=== PATIENT | male | born 1970 | race Caucasian/White ===

== ENCOUNTER 2017-09-30 10:09 | Observation (INO) | payer OTHER ==
[2017-09-30] VITALS (8 sets, daily range): BP systolic 111–167; BP diastolic 61–101; PULSE 46–74; RESP 16–20; TEMP 97.1–98.2; O2SAT 96–100
[~2017-09-30] VITALS: Ht 175.3 cm; Wt 84.6 kg
[2017-09-30] MEDS ORDERED: ZANA4CAP PO (12:32)
[2017-09-30] MEDS ORDERED: IMIT25TA PO (12:32)
[2017-09-30] MEDS ORDERED: VARE1 PO (12:32)
[2017-09-30] MEDS ORDERED: ALPR0.25 PO (12:32)
[2017-09-30] MEDS ORDERED: MORP1TAB25 PO (12:32)
[2017-09-30] MEDS ORDERED: LINA145C PO (12:32)
[2017-09-30] MEDS ORDERED: ZOLP10TA3 PO (12:32)
[2017-09-30] MEDS ORDERED: TRAZ100T10 PO (12:32)
[2017-09-30] MEDS ORDERED: PROT40TA PO (12:32)
[2017-09-30] MEDS ORDERED: DILA4TAB10 PO (12:32)
--- NOTE | 2017-09-30 12:41 | PD ---
HPI Chief Complaint: Chest Pain Time Seen by Provider: 12:38 Travel History International Travel<30 days: No Contact w/Intl Traveler<30days: No Traveled to known affect area: No History of Present Illness HPI 47-year-old male patient with history of hypertension, presents to the ER today because of left-sided chest pains that started on its own and has been waxing and waning intermittently for the last week and a half. He states that it even feels like it is going down his left shoulder. He states that it gets worse with movements and deep breaths. He denies any fevers, coughing, shortness of breath, or any other symptoms. He currently rates it a 7 out of 10. Modifying Factors: Worse with movement and deep breath Associated Signs & Symptoms: Left-sided chest pain Risk Factors: None PFSH Past Medical History Diminished Hearing: No Gastrointestinal Disorders: Yes GERD: Yes Musculoskeletal: Yes Influenza Vaccination: No Past Surgical History Other Surgery: Yes (MULTIPLE DUE TO INJURIES) Social History Alcohol Use: Yes Tobacco Use: No Allergies-Medications (Allergen,Severity, Reaction): Coded Allergies: vancomycin (Verified Allergy, Severe, "VANNESSA SYNDROME" AND ITCHY, ) Reported Meds & Prescriptions Reported Meds & Active Scripts Active Reported Zanaflex (Tizanidine HCl) 4 Mg Cap 4 Mg PO TID Linzess (Linaclotide) 145 Mcg Cap 145 Mcg PO HS Alprazolam 0.25 Mg Tab 0.25 Mg PO Q8H PRN Morphine ER (Morphine Sulfate) 30 Mg Tab 30 Mg PO BID Dilaudid (Hydromorphone HCl) 4 Mg Tab 4 Mg PO Q8H PRN Chantix (Varenicline) 1 Mg Tab 1 Mg PO BIDPC Zolpidem (Zolpidem Tartrate) 10 Mg Tab 10 Mg PO HS PRN Trazodone (Trazodone HCl) 100 Mg Tablet 100 Mg PO HS Protonix (Pantoprazole Sodium) 40 Mg Tab 40 Mg PO BID Imitrex (Sumatriptan Succinate) 25 Mg Tab 25 Mg PO ONCE PRN If a satisfactory response has not been obtained at 2 hours, a second dose may be administered Review of Systems Except as stated in HPI: all other systems reviewed are Neg Physical Exam Narrative GENERAL: Well-developed middle age male patient currently in mild distress. Awake and oriented 3. SKIN: Focused skin assessment warm/dry. HEAD: Atraumatic. Normocephalic. EYES: Pupils equal and round. No scleral icterus. No injection or drainage. ENT: No nasal bleeding or discharge. Mucous membranes pink and moist. NECK: Trachea midline. No JVD. CARDIOVASCULAR: Regular rate and rhythm. No murmur appreciated. Pulses are present and equal bilaterally. CHEST: Nontender throughout without deformity or crepitance. No retractions or use of accessory muscles. RESPIRATORY: No accessory muscle use. Clear to auscultation. Breath sounds equal bilaterally. GASTROINTESTINAL: Abdomen soft, non-tender, nondistended. Hepatic and splenic margins not palpable. MUSCULOSKELETAL: No obvious deformities. No clubbing. No cyanosis. No edema. NEUROLOGICAL: Awake and alert. No obvious cranial nerve deficits. Motor grossly within normal limits. Normal speech. PSYCHIATRIC: Appropriate mood and affect; insight and judgment normal. Data Data Last Documented VS Vital Signs Date Time Temp Pulse Resp B/P (MAP) Pulse Ox O2 Delivery O2 Flow Rate FiO2 09/30/17 14:05 68 18 153/100 (117) 99 Room Air 09/30/17 10:15 98.1 Orders Orders Electrocardiogram (09/30/17 12:38) Ckmb (Isoenzyme) Profile (09/30/17 12:38) Complete Blood Count With Diff (09/30/17 12:38) Comprehensive Metabolic Panel (09/30/17 12:38) D-Dimer (09/30/17 12:38) Magnesium (Mg) (09/30/17 12:38) Prothrombin Time / Inr (Pt) (09/30/17 12:38) Act Partial Throm Time (Ptt) (09/30/17 12:38) Troponin I (09/30/17 12:38) Lipase (09/30/17 12:38) Chest, Single Ap (09/30/17 12:38) Ecg Monitoring (09/30/17 12:38) Bilateral Bp Monitoring (09/30/17 12:38) Iv Access Insert/Monitor (09/30/17 12:38) Oximetry (09/30/17 12:38) Oxygen Administration (09/30/17 12:38) Aspirin (Aspirin) (09/30/17 12:45) Nitroglycerin 2% Oint (Nitroglycerin 2% (09/30/17 12:45) Sodium Chloride 0.9% Flush (Ns Flush) (09/30/17 12:45) CKMB (09/30/17 12:45) CKMB% (09/30/17 12:45) Admit Order (Ed Use Only) (09/30/17 14:16) Labs Laboratory Tests Test 09/30/17 12:45 White Blood Count 7.3 TH/MM3 Red Blood Count 4.71 MIL/MM3 Hemoglobin 14.0 GM/DL Hematocrit 42.2 % Mean Corpuscular Volume 89.7 FL Mean Corpuscular Hemoglobin 29.8 PG Mean Corpuscular Hemoglobin Concent 33.2 % Red Cell Distribution Width 12.7 % Platelet Count 227 TH/MM3 Mean Platelet Volume 8.5 FL Neutrophils (%) (Auto) 69.4 % Lymphocytes (%) (Auto) 19.1 % Monocytes (%) (Auto) 7.9 % Eosinophils (%) (Auto) 2.6 % Basophils (%) (Auto) 1.0 % Neutrophils # (Auto) 4.9 TH/MM3 Lymphocytes # (Auto) 1.4 TH/MM3 Monocytes # (Auto) 0.6 TH/MM3 Eosinophils # (Auto) 0.2 TH/MM3 Basophils # (Auto) 0.1 TH/MM3 CBC Comment DIFF FINAL Differential Comment Prothrombin Time 10.0 SEC Prothromb Time International Ratio 1.0 RATIO Activated Partial Thromboplast Time 26.3 SEC D-Dimer Quantitative (PE/DVT) LESS THAN 0.19 MG/L FEU Blood Urea Nitrogen 14 MG/DL Creatinine 0.96 MG/DL Random Glucose 97 MG/DL Total Protein 6.9 GM/DL Albumin 3.8 GM/DL Calcium Level 8.4 MG/DL Magnesium Level 1.9 MG/DL Alkaline Phosphatase 71 U/L Aspartate Amino Transf (AST/SGOT) 21 U/L Alanine Aminotransferase (ALT/SGPT) 22 U/L Total Bilirubin 0.6 MG/DL Sodium Level 136 MEQ/L Potassium Level 4.0 MEQ/L Chloride Level 102 MEQ/L Carbon Dioxide Level 25.6 MEQ/L Anion Gap 8 MEQ/L Estimat Glomerular Filtration Rate 85 ML/MIN Total Creatine Kinase 167 U/L Creatine Kinase MB 1.1 NG/ML Troponin I LESS THAN 0.02 NG/ML Lipase 72 U/L MDM Medical Decision Making Medical Screen Exam Complete: Yes Emergency Medical Condition: Yes Medical Record Reviewed: Yes Interpretation(s) EKG shows NSR, no ST elevation or depression, and no arrhythmias. No significant T-wave inversions. Laboratory Tests Test 09/30/17 12:45 Calcium Level 8.4 MG/DL (8.5-10.1) Estimat Glomerular Filtration Rate 85 ML/MIN (>89) Troponin I LESS THAN 0.02 NG/ML Lipase 72 U/L (73-393) Last 24 hours Impressions Chest X-Ray 09/30/17 1238 Signed Impressions: Service Date/Time: Saturday, September 30, 2017 13:27 - CONCLUSION: No acute disease. Ray Villalobos MD Differential Diagnosis Chest pains: Pleurisy versus pneumonia versus ACS versus PE Narrative Course D-dimer is negative. Chest x-ray did not show any signs of acute pulmonary processes. Cardiac enzymes negative. EKG did not show any signs of acute changes. However, considering the patient's history of hypertension, age, my plan would be to admit him for further evaluation and chest pain center. Case is discussed with Dr. Mcginnis for admission. He has been given aspirin and nitroglycerin in the ER. Diagnosis Primary Impression: Chest pain Admitting Information Admitting Physician Requests: Admit Baltazar Davidson MD Sep 30, 2017 12:41
[2017-09-30] MEDS ORDERED: SODIUM CHLORIDE 0.9% FLUSH 10 ML FLUSH IVF PRN (12:45)
[2017-09-30] MEDS ORDERED: ASPIRIN 325 MG TAB PO ONE (12:45)
[2017-09-30] MEDS ORDERED: NITROGLYCERIN 2% OINT 1 GM PACKET TOP ONE (12:45)
[2017-09-30 12:55] LABS: AUTOMATED NEUTROPHIL # 4.9 TH/MM3 (1.8-7.7); BASOPHIL # 0.1 TH/MM3 (0-0.2); EOSINOPHIL # 0.2 TH/MM3 (0-0.4); EOSINOPHIL % 2.6 % (0.0-4.0); HEMATOCRIT 42.2 % (39.0-51.0); HEMO FLAGS DIFF FINAL; LYMPH % 19.1 % (9.0-44.0); LYMPHOCYTE # 1.4 TH/MM3 (1.0-4.8); MEAN CELL VOLUME 89.7 FL (80.0-100.0); MEAN CORPUSCULAR HEMOGLOBIN 29.8 PG (27.0-34.0); MEAN CORPUSCULAR HGB CONC 33.2 % (32.0-36.0); MONO % 7.9 % (0.0-8.0); NEUT % 69.4 % (16.0-70.0); PLATELET COUNT 227 TH/MM3 (150-450); RED BLOOD COUNT 4.71 MIL/MM3 (4.50-5.90); RED CELL DISTRIBUTION WIDTH 12.7 % (11.6-17.2); WHITE BLOOD COUNT 7.3 TH/MM3 (4.0-11.0)
[2017-09-30 13:09] LABS: CHLORIDE 102 MEQ/L (98-107); SODIUM (NA) 136 MEQ/L (136-145)
[2017-09-30 13:15] LABS: ANION GAP 8 MEQ/L (5-15); APTT (PATIENT) 26.3 SEC (24.3-30.1); BICARBONATE 25.6 MEQ/L (21.0-32.0); BLOOD UREA NITROGEN 14 MG/DL (7-18); MAGNESIUM 1.9 MG/DL (1.5-2.5)
[2017-09-30 13:18] LABS: ALT (GPT) 22 U/L (12-78); AST (GOT) 21 U/L (15-37); GLOMERULAR FILTRATION RATE 85 ML/MIN (>89)
[2017-09-30 13:19] LABS: TOTAL BILIRUBIN ADULT 0.6 MG/DL (0.2-1.0)
[2017-09-30 13:21] LABS: ALKALINE PHOSPHATASE 71 U/L (45-117); CREATINE KINASE 167 U/L (39-308)
[2017-09-30 13:33] LABS: CKMB 1.1 NG/ML (0.5-3.6)
--- NOTE | 2017-09-30 13:57 | RADRPT ---
EXAM DATE/TIME: 09/30/2017 13:27 [facility] COMPARISON: No previous studies available for comparison. INDICATIONS : Chest pain MEDICAL HISTORY : Osteoarthritis. Rheumatoid arthritis. SURGICAL HISTORY : Joint replacement surgery ENCOUNTER: Initial ACUITY: 1 week PAIN SCORE: 8/10 LOCATION: Bilateral chest FINDINGS: A single view of the chest demonstrates the lungs to be symmetrically aerated without evidence of mas s, infiltrate or effusion. The cardiomediastinal contours are unremarkable. Osseous structures are intact. CONCLUSION: No acute disease. Ray Villalobos MD on September 30, 2017 at 13:55 Board Certified Radiologist. This report was verified electronically.
--- NOTE | 2017-09-30 16:46 | HHI.HP ---
[facility] Service [facility] Primary Care Physician Non-Staff Admission Diagnosis Chest pain Diagnoses: (1) Chest pain Diagnosis: Principal Chief Complaint: Chest pain Travel History International Travel<30 Days: No Contact w/Intl Traveler <30 Da: No Traveled to Known Affected Are: No History of Present Illness Mr. Blanco is a 47-year-old male patient with a known medical history of GERD and HTN who presented to the ED with complaints of chest pain. Patient states that about a week and a half ago he noticed a sudden chest discomfort while watching television. The pain was located in his left chest and radiated to his midsternal area. He characterizes the pain as a sharp pain, leaving his feeling "bruised" and "sore". The patient states this type of pain has been occurring intermittently over the course of 1.5 weeks. Denies any associated symptoms including nausea, vomiting, diaphoresis or shortness of breath. He does state that increased activity makes the pain worse. Denies any known relieving factors. Denies any recent illness including fever, chills, headache, sore throat, shortness of breath, ab pain, n/v/d or dysuria. Does state that roughly 8 years ago he had similar complaints of chest pain, underwent a nuclear stress test which was reportedly negative. Patient also at that time underwent a cardiac catheterization with unknown report. Patient did not follow with a sports development officer and vaguely remembers that the cath was unremarkable. PCP is Dr. Mcallister. Review of Systems Constitutional: DENIES: Fever, Chills Eyes: DENIES: Blurred vision, Diplopia Respiratory: DENIES: Cough, Sputum production, Shortness of breath Cardiovascular: COMPLAINS OF: Chest pain, Palpitations Gastrointestinal: DENIES: Abdominal pain, Black stools, Bloody stools, Constipation, Diarrhea, Nausea, Vomiting Musculoskeletal: COMPLAINS OF: Back pain Hematologic/lymphatic: DENIES: Bruising Psychiatric: DENIES: Anxiety Except as stated in HPI: all other systems reviewed are Neg Past Family Social History Past Medical History Chronic back pain, multiple injuries GERD Past Surgical History Multiple surgeries due to past injuries. Reported Medications Active Reported Zanaflex (Tizanidine HCl) 4 Mg Cap 4 Mg PO TID Linzess (Linaclotide) 145 Mcg Cap 145 Mcg PO HS Alprazolam 0.25 Mg Tab 0.25 Mg PO Q8H PRN Morphine ER (Morphine Sulfate) 30 Mg Tab 30 Mg PO BID Dilaudid (Hydromorphone HCl) 4 Mg Tab 4 Mg PO Q8H PRN Chantix (Varenicline) 1 Mg Tab 1 Mg PO BIDPC Zolpidem (Zolpidem Tartrate) 10 Mg Tab 10 Mg PO HS PRN Trazodone (Trazodone HCl) 100 Mg Tablet 100 Mg PO HS Protonix (Pantoprazole Sodium) 40 Mg Tab 40 Mg PO BID Imitrex (Sumatriptan Succinate) 25 Mg Tab 25 Mg PO ONCE PRN If a satisfactory response has not been obtained at 2 hours, a second dose may be administered Allergies: Coded Allergies: vancomycin (Verified Allergy, Severe, "VANNESSA SYNDROME" AND ITCHY, ) Active Ordered Medications Current Medications Medications (Trade) Dose Ordered Sig/Andres Route Start Time Stop Time Status Last Admin (NS Flush) 2 ml UNSCH PRN IVF 09/30/17 12:45 (Tylenol) 650 mg Q4H PRN PO 09/30/17 17:00 UNV (Zofran Inj) 4 mg Q6H PRN IVP 09/30/17 17:00 UNV (Aniyah-Colace) 1 tab BID PO 09/30/17 21:00 UNV Family History Paternal medical history significant for cardiovascular disease. Social History Denies any current tobacco use, does admit to quitting two weeks ago. Prior to this he smoked 1 ppd cigarettes x 15 years. Admits to occasional alcohol use. Denies any illicit drug use. Physical Exam Vital Signs Vital Signs Date Time Temp Pulse Resp B/P (MAP) Pulse Ox O2 Delivery O2 Flow Rate FiO2 09/30/17 15:58 80 18 111/61 (78) 98 09/30/17 14:05 68 18 153/100 (117) 99 Room Air 09/30/17 13:39 70 98 Room Air 09/30/17 12:53 Nasal Cannula 09/30/17 12:53 100 09/30/17 12:53 68 20 154/95 (114) 96 167/97 (120) 09/30/17 12:33 70 09/30/17 10:15 98.1 74 16 156/101 (119) 98 Physical Exam GENERAL: This is a well-nourished, well-developed patient, in no apparent distress. SKIN: No rashes, ecchymoses or lesions. Warm and dry. HEAD: Atraumatic. Normocephalic. Pupils equal round and reactive. Extraocular motions intact. No scleral icterus. No injection or drainage. Nose without bleeding. Airway patent. NECK: Trachea midline. No JVD. Supple. CARDIOVASCULAR: Regular rate and rhythm without murmurs, gallops, or rubs. No reproducible chest pain to palpation. RESPIRATORY: Clear to auscultation. Breath sounds equal bilaterally. No wheezes , rales, or rhonchi. GASTROINTESTINAL: Abdomen soft, non-tender, nondistended. No guarding. MUSCULOSKELETAL: Extremities without clubbing, cyanosis, or edema. No joint tenderness, effusion, or edema noted. NEUROLOGICAL: Awake and alert. Cranial nerves II through XII intact. Motor and sensory grossly within normal limits. Five out of 5 muscle strength in all muscle groups. Normal speech. Laboratory Laboratory Tests Test 09/30/17 12:45 White Blood Count 7.3 Red Blood Count 4.71 Hemoglobin 14.0 Hematocrit 42.2 Mean Corpuscular Volume 89.7 Mean Corpuscular Hemoglobin 29.8 Mean Corpuscular Hemoglobin Concent 33.2 Red Cell Distribution Width 12.7 Platelet Count 227 Mean Platelet Volume 8.5 Neutrophils (%) (Auto) 69.4 Lymphocytes (%) (Auto) 19.1 Monocytes (%) (Auto) 7.9 Eosinophils (%) (Auto) 2.6 Basophils (%) (Auto) 1.0 Neutrophils # (Auto) 4.9 Lymphocytes # (Auto) 1.4 Monocytes # (Auto) 0.6 Eosinophils # (Auto) 0.2 Basophils # (Auto) 0.1 CBC Comment DIFF FINAL Differential Comment Prothrombin Time 10.0 Prothromb Time International Ratio 1.0 Activated Partial Thromboplast Time 26.3 D-Dimer Quantitative (PE/DVT) LESS THAN 0.19 Blood Urea Nitrogen 14 Creatinine 0.96 Random Glucose 97 Total Protein 6.9 Albumin 3.8 Calcium Level 8.4 Magnesium Level 1.9 Alkaline Phosphatase 71 Aspartate Amino Transf (AST/SGOT) 21 Alanine Aminotransferase (ALT/SGPT) 22 Total Bilirubin 0.6 Sodium Level 136 Potassium Level 4.0 Chloride Level 102 Carbon Dioxide Level 25.6 Anion Gap 8 Estimat Glomerular Filtration Rate 85 Total Creatine Kinase 167 Creatine Kinase MB 1.1 Troponin I LESS THAN 0.02 Lipase 72 Result Diagram: 09/30/17 1245 09/30/17 1245 Imaging Last Impressions Chest X-Ray 09/30/17 1238 Signed Impressions: Service Date/Time: Saturday, September 30, 2017 13:27 - CONCLUSION: No acute disease. Ray Villalobos MD Septic Shock Reassessment Septic shock perfusion: reassessment completed Caprini VTE Risk Assessment Caprini VTE Risk Assessment: No/Low Risk (score <= 1) Caprini Risk Assessment Model Point Value = 1 Point Value = 2 Point Value = 3 Point Value = 5 Age 41-60 Minor surgery BMI > 25 kg/m2 Swollen legs Varicose veins or History of unexplained or recurrent spontaneous Oral contraceptives or hormone replacement Sepsis (< 1 month) Serious lung disease, including pneumonia (< 1 month) Abnormal pulmonary function Acute myocardial infarction Congestive heart failure (< 1 month) History of inflammatory bowel disease Medical patient at bed rest Age 61-74 Arthroscopic surgery Major open surgery (> 45 min) Laparoscopic surgery (> 45 min) Malignancy Confined to bed (> 72 hours) Immobilizing plaster cast Central venous access Age >= 75 History of VTE Family history of VTE Factor V Leiden Prothrombin [id number] Lupus anticoagulant Anticardiolipin antibodies Elevated serum homocysteine Heparin-induced thrombocytopenia Other congenital or acquired thrombophilia Stroke (< 1 month) Elective arthroplasty Hip, pelvis, or leg fracture Acute spinal cord injury (< 1 month) Prophylaxis Regimen Total Risk Factor Score Risk Level Prophylaxis Regimen 0-1 Low Early ambulation 2 Moderate Order ONE of the following: *Sequential Compression Device (SCD) *Heparin 5000 units SQ BID 3-4 Higher Order ONE of the following medications: *Heparin 5000 units SQ TID *Enoxaparin/Lovenox 40 mg SQ daily (WT < 150 kg, CrCl > 30 mL/min) *Enoxaparin/Lovenox 30 mg SQ daily (WT < 150 kg, CrCl > 10-29 mL/min) *Enoxaparin/Lovenox 30 mg SQ BID (WT < 150 kg, CrCl > 30 mL/min) AND/OR *Sequential Compression Device (SCD) 5 or more Highest Order ONE of the following medications: *Heparin 5000 units SQ TID (Preferred with Epidurals) *Enoxaparin/Lovenox 40 mg SQ daily (WT < 150 kg, CrCl > 30 mL/min) *Enoxaparin/Lovenox 30 mg SQ daily (WT < 150 kg, CrCl > 10-29 mL/min) *Enoxaparin/Lovenox 30 mg SQ BID (WT < 150 kg, CrCl > 30 mL/min) AND *Sequential Compression Device (SCD) Assessment and Plan Problem List: (1) Chest pain ICD Code: R07.9 - Chest pain, unspecified Status: Acute Plan: Patient has been admitted to the chest pain center. Serial Ekgs and serial troponins have been ordered for ruling out ACS purposes. Initial troponin flat. Will continue to monitor trends. Patient was given aspirin and Nitroglycerin in ED. EKG reviewed showing NSR with controlled HR. No ST changes to indicate ischemia. CXR reviewed showing no acute disease,. Will allow patient to eat tonight with plans for NPO after midnight. If serial troponins and serial Ekgs are negative patient will undergo a nuclear stress test to rule out any possibility of further ischemia. Will attempt to obtain records from cardiac catheterization reports performed in [place]. Follow. Continue cardiac telemetry to monitor for any arrhythmias. Patient is stable at this time and agreeable to the plan. (2) Chronic back pain ICD Code: M54.9 - Dorsalgia, unspecified; G89.29 - Other chronic pain Plan: Resume home medications as indicated. DVT Prophylaxis: SCDs. Coral Mahoney Sep 30, 2017 16:46
[2017-09-30] MEDS ORDERED: ACETAMINOPHEN 325 MG TAB PO PRN (17:00)
[2017-09-30] MEDS ORDERED: ONDANSETRON HCL 4 MG/2 ML VIAL IVP PRN (17:00)
[2017-09-30] MEDS: SUMAtriptan SUCCINATE 25 MG TAB PO PRN (18:06)
[2017-09-30 19:21] LABS: CREATINE KINASE 136 U/L (39-308)
[2017-09-30 19:34] LABS: CKMB 0.6 NG/ML (0.5-3.6)
[2017-09-30] MEDS: traZODone HCL 100 MG TAB PO SCH (21:00)
[2017-09-30] MEDS: DOCUSATE SODIUM 50 MG/SENNA 8.6 MG TAB PO SCH (21:00)
[2017-09-30] MEDS ORDERED: LINZESS 145 MCG PO SCH (21:00)
[2017-09-30] MEDS: PANTOPRAZOLE SOD 40 MG DELAYED RELEASE TAB PO SCH (21:59)
[2017-09-30] MEDS: MORPHINE SULFATE 2 MG/ML INJ IV PUSH PRN (23:30)
[2017-10-01] VITALS: BP 118/69; PULSE 62; RESP 17; TEMP 97.3; O2SAT 97
[2017-10-01] MEDS: traZODone HCL 100 MG TAB PO SCH (01:04)
[2017-10-01] MEDS: MORPHINE SULFATE 2 MG/ML INJ IV PUSH PRN ×2 (01:11→06:18)
[2017-10-01 01:52] LABS: CREATINE KINASE 125 U/L (39-308)
[2017-10-01 02:05] LABS: CKMB 0.6 NG/ML (0.5-3.6)
[2017-10-01 04:00] VITALS: BP 109/85; PULSE 59; RESP 17; TEMP 98.5; O2SAT 96
[2017-10-01 06:04] LABS: BASOPHIL % 0.7 % (0.0-2.0); EOSINOPHIL # 0.3 TH/MM3 (0-0.4); EOSINOPHIL % 4.4 % (0.0-4.0); HEMATOCRIT 40.2 % (39.0-51.0); HEMO FLAGS DIFF FINAL; LYMPH % 34.6 % (9.0-44.0); MEAN CELL VOLUME 90.9 FL (80.0-100.0); MEAN CORPUSCULAR HEMOGLOBIN 29.2 PG (27.0-34.0); MEAN CORPUSCULAR HGB CONC 32.2 % (32.0-36.0); MONO % 9.4 % (0.0-8.0); NEUT % 50.9 % (16.0-70.0); PLATELET COUNT 219 TH/MM3 (150-450); RED BLOOD COUNT 4.43 MIL/MM3 (4.50-5.90); RED CELL DISTRIBUTION WIDTH 12.7 % (11.6-17.2); WHITE BLOOD COUNT 5.8 TH/MM3 (4.0-11.0)
[2017-10-01 06:19] LABS: POTASSIUM 3.9 MEQ/L (3.5-5.1)
[2017-10-01 06:26] LABS: BICARBONATE 27.6 MEQ/L (21.0-32.0)
[2017-10-01 08:00] VITALS: BP 131/88; PULSE 53; RESP 18; TEMP 97.2; O2SAT 96
[2017-10-01] MEDS: DOCUSATE SODIUM 50 MG/SENNA 8.6 MG TAB PO SCH ×2 (08:51→09:42)
[2017-10-01] MEDS ORDERED: HYDROmorphone HCL 4 MG TAB PO PRN (09:30)
[2017-10-01] MEDS ORDERED: MORPHINE SULFATE 30 MG CONTROLLED RELEASE TAB PO SCH (09:30)
[2017-10-01] MEDS: PANTOPRAZOLE SOD 40 MG DELAYED RELEASE TAB PO SCH (09:41)
--- NOTE | 2017-10-01 10:04 | HHI.PR ---
Subjective Remarks Follow up chest pain. Patient seen and examined, lying in bed. With complaints of continued discomfort in his chest and back. No changes in characteristics. Patient denies any relief with pain medications. VSS. Afebrile. at bedside and updated. All questions answered. Plan is for nuclear stress test today ( unable to perform treadmill due to multiple back surgeries). Will follow with results. Objective Vitals Vital Signs Date Time Temp Pulse Resp B/P (MAP) Pulse Ox O2 Delivery O2 Flow Rate FiO2 10/01/17 08:00 97.2 53 18 131/88 (102) 96 10/01/17 04:00 98.5 59 17 109/85 (93) 96 10/01/17 00:00 97.3 62 17 118/69 (85) 97 09/30/17 20:06 46 09/30/17 20:00 98 21 09/30/17 20:00 97.1 57 18 120/78 (92) 98 09/30/17 19:06 18 09/30/17 18:03 98 09/30/17 17:16 98.2 58 16 121/76 (91) 98 09/30/17 15:58 80 18 111/61 (78) 98 09/30/17 14:05 68 18 153/100 (117) 99 Room Air 09/30/17 13:39 70 98 Room Air 09/30/17 12:53 Nasal Cannula 09/30/17 12:53 100 09/30/17 12:53 68 20 154/95 (114) 96 167/97 (120) 09/30/17 12:33 70 09/30/17 10:15 98.1 74 16 156/101 (119) 98 Result Diagram: 10/01/17 0450 10/01/17 0450 Imaging Last Impressions Chest X-Ray 09/30/17 1238 Signed Impressions: Service Date/Time: Saturday, September 30, 2017 13:27 - CONCLUSION: No acute disease. Ray Villalobos MD Objective Remarks GENERAL: This is a well-nourished, well-developed patient. SKIN: No rashes, ecchymoses or lesions. Warm and dry. HEAD: Atraumatic. Normocephalic. Pupils equal round and reactive. Extraocular motions intact. No scleral icterus. No injection or drainage. Nose without bleeding. Airway patent. NECK: Trachea midline. No JVD. Supple. CARDIOVASCULAR: Regular rate and rhythm without murmurs, gallops, or rubs. No reproducible chest pain to palpation. RESPIRATORY: Clear to auscultation. Breath sounds equal bilaterally. No wheezes , rales, or rhonchi. GASTROINTESTINAL: Abdomen soft, non-tender, nondistended. No guarding. MUSCULOSKELETAL: Extremities without clubbing, cyanosis, or edema. No joint tenderness, effusion, or edema noted. NEUROLOGICAL: Awake and alert. Cranial nerves II through XII intact. Motor and sensory grossly within normal limits. Five out of 5 muscle strength in all muscle groups. Normal speech. A/P Problem List: (1) Chest pain ICD Code: R07.9 - Chest pain, unspecified Status: Acute Plan: Patient has been admitted to the chest pain center. Serial Ekgs and serial troponins have been ordered for ruling out ACS purposes. Trends are flat. Patient was given aspirin and Nitroglycerin in ED. Pain has continued. EKG reviewed showing NSR with controlled HR. No ST changes to indicate ischemia. CXR reviewed showing no acute disease,. Patient will undergo a nuclear stress test to rule out any possibility of further ischemia. Continue to follow. Will attempt to obtain records from cardiac catheterization reports performed in [place]. Follow. Continue cardiac telemetry to monitor for any arrhythmias. (2) Chronic back pain ICD Code: M54.9 - Dorsalgia, unspecified; G89.29 - Other chronic pain Plan: Resume home medications as indicated. DVT Prophylaxis: SCDs. Assessment and Plan Cardiac nuclear stress test performed and results reviewed showing an EF of 37% , no stress-induced ischemia however moderate activity is evident. Results called to Dr. Watters, election watcher livestock producer, who recommends outpatient follow up with PCP and to undergo an ECHO for further evaluation. Will also prescribe an SINAN. Encouraged to return to ED if symptoms worsen. Patient is stable at this time and agreeable to the plan. Coral Mahoney Oct 01, 2017 10:04
[2017-10-01] MEDS ORDERED: REGADENOSON INJ 0.4 MG/5 ML SYR IV ONE (10:09)
[2017-10-01] MEDS ORDERED: KETOROLAC TROMETHAMINE 60 MG/2 ML (IM) VIAL IM ONE (10:15)
--- NOTE | 2017-10-01 11:15 | RADRPT ---
EXAM DATE/TIME: 10/01/2017 10:04 [facility] COMPARISON: No previous studies available for comparison. INDICATIONS : Left sided chest pain for two weeks. Angina. DOSE: 25.5 mCi Tc99m Myoview at stress. 8.7 mCi Tc99m Myoview at rest. 0.4 mg Lexiscan STRESS SYMPTOMS: Shortness of breath. EJECTION FRACTION: 38% MEDICAL HISTORY : Hypertension. Gastroesophageal reflux disease. SURGICAL HISTORY : Total knee replacement, right. ENCOUNTER: Initial ACUITY: 2 weeks PAIN SCALE: 5/10 LOCATION: Left chest TECHNIQUE: The patient underwent pharmacologic stress with infusion of prescribed dose. Continuous ECG tracing was monitored during stress. Gated SPECT imaging was performed after stress and conventional SPECT i maging was performed at rest. The examination was performed on a SPECT/CT scanner, both attenuation and non-corrected datasets were reviewed. FINDINGS: There is dilatation of the ventricular cavity. There are no fixed defects to suggest infarction. There is no redistribution to suggest ischemia. The ejection fraction is 37% with global hypokinesis . CONCLUSION: Global hypokinesis with dilated ventricular cavity an ejection fraction of 37%. I do not see stress- induced ischemia however moderate activity is evident. RISK CATEGORY: Intermediate (1-3% Annual Mortality Rate) Jorje Beyer MD FACR on October 01, 2017 at 11:09 Board Certified Radiologist. This report was verified electronically.
[2017-10-01] MEDS ORDERED: LISI10TA3 PO (11:35)
[2017-10-01] MEDS: SUMAtriptan SUCCINATE 25 MG TAB PO PRN (11:36)
--- NOTE | 2017-10-01 11:36 | HHI.DCPOC ---
Discharge Care Plan Diagnosis: (1) Chest pain (2) Chronic back pain Goals to Promote Your Health * To prevent worsening of your condition and complications * To maintain your health at the optimal level Directions to Meet Your Goals Take your medications as prescribed Follow your dietary instruction Follow activity as directed Keep your appointments as scheduled Take your immunizations and boosters as scheduled If your symptoms worsen call your PCP, if no PCP go to Urgent Care Center or Emergency Room Smoking is Dangerous to Your Health. Avoid second hand smoke Call the 24-hour hour crisis hotline for domestic abuse at Coral Mahoney Oct 01, 2017 11:36
[2017-10-01] MEDS ORDERED: KETO10 PO (12:01)
--- NOTE | 2017-10-01 17:16 | EKG ---
Date Performed: 09/30/2017 Time Performed: 10:18:57 PTAGE: 47 years EKG: Sinus rhythm NORMAL ECG NO PREVIOUS TRACING DOCTOR: Bandar Amador Interpretating Date/Time 10/01/2017 17:14:05
--- NOTE | 2017-10-01 17:16 | EKG ---
Date Performed: 10/01/2017 Time Performed: 00:55:35 PTAGE: 47 years EKG: SINUS BRADYCARDIA PROBABLE INFERIOR MYOCARDIAL INFARCTION Since previous tracing, no signif icant change noted ABNORMAL ECG PREVIOUS TRACING : 09/30/2017 18.34 DOCTOR: Bandar Amador Interpretating Date/Time 10/01/2017 17:14:46
--- NOTE | 2017-10-01 17:16 | EKG ---
Date Performed: 09/30/2017 Time Performed: 18:34:56 PTAGE: 47 years EKG: SINUS BRADYCARDIA Since previous tracing, no significant change noted BORDERLINE ECG PREVIOUS TRACING : 09/30/2017 10.18 DOCTOR: Bandar Amador Interpretating Date/Time 10/01/2017 17:14:32
--- NOTE | 2017-10-02 07:52 | TR ---
Date Performed: 10/01/2017 Time Performed: 10:28:25 DOCTOR: Yanni Lovell DRUG LIST: CLINICAL HISTORY: CHEST PAIN REASON FOR TEST: Chest pain REASON FOR ENDING: OBSERVATION: CONCLUSION: Lexiscan stress test was performed under standard four minute protocol. Radionuclid e was injected one minute prior to ending the test. No electrocardiographic abormalities were present to suggest ischemia. Nuclear imaging and interpretation are pending. COMMENTS:
== END 2017-10-01 12:19 | disposition home or self-care (01) ==
LOC: PHED 10:09 → PHEDA 14:18 → PH3A 15:53
PROVIDERS: ADMIT Hospitalist; ATTEND Hospitalist
DX: R07.89 Other chest pain (principal); I10 Essential (primary) hypertension; R94.31 Abnormal electrocardiogram [ECG] [EKG]; K21.9 Gastro-esophageal reflux disease without esophagitis; M54.9 Dorsalgia, unspecified; G89.29 Other chronic pain; Z87.891 Personal history of nicotine dependence; Z96.651 Presence of right artificial knee joint
CPT/HCPCS: 71010; 78452; 80048; 80053; 82550; 82552; 83690; 83735; 84484; 85025; 85379; 85610; 85730; 93005; 93017; 96372; 99285; A9502; G0378; J1885; J2270; J2785

== ENCOUNTER → 2018-01-08 | Day surgery (SDC) | payer MEDICARE ==
[~2018-01-08] VITALS: Ht 175.3 cm; Wt 81.0 kg
[~2018-01-08] MED LIST: ALPR0.25 PO; ASPI81TA23 PO; CARV6.252 PO; CHLORHEXIDINE GLUCONATE 2 % 1 PACK (2 CLOTHS) TOPICAL PRN; CLINDAMYCIN 600 MG/NS PREMIX 50 ML IV SCH; DILA4TAB10 PO; FLUT50SP EACH NARE; IMIT25TA PO; KETO10 PO; LACTATED RINGER'S 1000 ML IV PRN; LIDOCAINE 1%/EPINEPHrine 1:100,000 SOLN 20 ML VIAL ONE; LINA145C PO; LIPI20TA PO; LISI10TA3 PO; LOSA50TA PO; METOPROLOL TARTRATE 25 MG TAB PO PRN; MICROFIBRILLAR COLLAGEN HEMOSTAT 1 GM PKT ONE; MORP1TAB24 PO; OXYMETAZOLINE HCL 0.05% 15 ML NASAL SPRAY ONE; POVIDONE IODINE 5% (ANTISEPSIS KIT) 4 APPLICATIONS EACH NARE PRN; PROT40TA PO; SODIUM CHLORID 0.9% 500 ML IV PRN; TRAZ100T10 PO; VARE1 PO; ZANA4CAP PO; ZOLP10TA3 PO
[2018-01-08 06:42] VITALS: BP 170/102; PULSE 70; RESP 16; TEMP 97.7; O2SAT 98
== END | disposition home or self-care (01) ==
LOC: PHSDC 06:11
PROVIDERS: ATTEND Otolaryngology
DX: J32.8 Other chronic sinusitis (principal); J34.3 Hypertrophy of nasal turbinates; J34.2 Deviated nasal septum; J35.03 Chronic tonsillitis and adenoiditis; Z53.09 Procedure and treatment not carried out because of other contraindication
CPT/HCPCS: 99211; G0463

== ENCOUNTER → 2018-02-19 | Day surgery (SDC) | END | disposition home or self-care (01) | DX: J35.01 Chronic tonsillitis (principal); J35.3 Hypertrophy of tonsils with hypertrophy of adenoids; J32.9 Chronic sinusitis, unspecified; J34.3 Hypertrophy of nasal turbinates; J34.2 Deviated nasal septum; R05 Cough | CPT/HCPCS: 00160; 30140; 30520; 42821; 88304; J0295; J0360; J1170; J2175; J2250; J3010; J7120 ==